=== PATIENT | male | born 1970 | race African-American/Black ===

== ENCOUNTER 2017-01-25 07:54 | Emergency (ER) | payer MEDICAID ==
[~2017-01-25] VITALS: Ht 180.3 cm; Wt 84.8 kg
[2017-01-25 08:12] VITALS: BP 158/106
== END 2017-01-25 08:49 | disposition home or self-care (01) ==
LOC: ER 07:54
DX: F20.9 Schizophrenia, unspecified (principal); Z76.0 Encounter for issue of repeat prescription